=== PATIENT | male | born 1985 ===

== ENCOUNTER 2017-02-27 13:34 | Emergency (ER) | payer OTHER ==
[2017-02-27 13:52] VITALS: TEMP 97.5
--- NOTE | 2017-02-27 15:14 | RAD ---
PROCEDURE: Right Hand Radiographs. HISTORY: r/o fx COMPARISON: None available. FINDINGS: BONES: No acute displaced fracture. JOINTS: No dislocation. SOFT TISSUES: Unremarkable. No evidence of radiopaque foreign body. OTHER FINDINGS: None. IMPRESSION: No acute displaced fracture, dislocation, or significant joint effusion identified. If symptoms persist, or if there is continued clinical concern, x-ray follow-up in 7-10 days should be considered.
[2017-02-27 15:17] VITALS: BP 132/76; PULSE 59; RESP 16; O2SAT 98
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
== END 2017-02-27 15:20 | disposition home or self-care (01) ==
LOC: C.ER 13:34
DX: S63.91XA Sprain of unspecified part of right wrist and hand, initial encounter (principal); V49.9XXA Car occupant (driver) (passenger) injured in unspecified traffic accident, initial encounter